=== PATIENT | male | born 1990 | race Caucasian/White ===

== ENCOUNTER 2019-02-26 23:44 | Emergency (ER) | payer OTHER ==
[~2019-02-26] VITALS: Ht 177.8 cm; Wt 117.9 kg
[2019-02-26 23:56] VITALS: BP 146/82
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
[2019-02-27] MEDS ORDERED: BACITRACIN ZINC TOPICAL OINT PACKET. TP ONE ×2 (00:10→00:30)
[2019-02-27] MEDS ORDERED: ACETAMINOPHEN 500 MG TABLET PO ONE (00:30)
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
== END 2019-02-27 01:19 | disposition home or self-care (01) ==
LOC: ER 23:44
DX: S06.0X0A Concussion without loss of consciousness, initial encounter (principal); S01.511A Laceration without foreign body of lip, initial encounter; S01.311A Laceration without foreign body of right ear, initial encounter; Y04.0XXA Assault by unarmed brawl or fight, initial encounter; Y93.89 Activity, other specified; Y92.89 Other specified places as the place of occurrence of the external cause; Y99.0 Civilian activity done for income or pay
CPT/HCPCS: 70450; 70486; 72125; 99284-25